=== PATIENT | male | born 1950 | race Hispanic/Latino ===

== ENCOUNTER 2023-12-23 07:00 | Emergency (ER) | payer OTHER ==
[~2023-12-23] VITALS: Ht 167.6 cm; Wt 83.9 kg
[2023-12-23 07:13] VITALS: PULSE 78; RESP 16; TEMP 98.5; O2SAT 98
[2023-12-23] MEDS: LORAZEPAM 0.5 MG TAB PO ONE (07:39)
[2023-12-23] MEDS ORDERED: XANAX0.25 MG PO (07:41)
== END 2023-12-23 07:45 | disposition home or self-care (01) ==
LOC: ER 07:24
DX: G47.00 Insomnia, unspecified (principal); Z76.0 Encounter for issue of repeat prescription; I10 Essential (primary) hypertension; E11.9 Type 2 diabetes mellitus without complications; E78.5 Hyperlipidemia, unspecified
CPT/HCPCS: 99283